=== PATIENT | male | born 1970 | race Caucasian/White ===

== ENCOUNTER 2021-07-06 16:10 | Emergency (ER) | payer OTHER ==
[2021-07-06] MEDS ORDERED: Colchicine 0.6 MG Tab PO ONE (17:14)
[2021-07-06] MEDS ORDERED: Colchicine 0.6 MG Tab PO SCH (17:15)
== END 2021-07-06 17:29 | disposition home or self-care (01) ==
LOC: JP.ED 16:10
DX: M10.9 Gout, unspecified (principal)
CPT/HCPCS: 99282; 99283; A9270